=== PATIENT | male | born 1970 | race African-American/Black ===

== ENCOUNTER 2020-08-26 08:55 | Day surgery (SDC) | payer OTHER, SELFPAY ==
[2020-08-26 09:05] VITALS: BP 172/97; PULSE 80; RESP 18; TEMP 36.2; O2SAT 97; BMI 30.4
--- NOTE | 2020-08-26 09:14 | MHC.SHP ---
Pre-Procedural Eval Section B Chief Complaint: SCREENING Relevant Family History (Specify if Yes): No Present Medications: see Short Stay Collaborative assessment Medical History: Significant History (eczema) History of Previous Operations: No relevant previous surgery Allergies: Allergies Allergy/AdvReac Type Severity Reaction Status Date / Time avocado [AVOCADO] Allergy Severe THROAT Unverified 06/13/20 18:46 SWELLING pollen extracts [POLLEN] Allergy Mild RUNNY NOSE Unverified 06/13/20 18:46 Review of Systems Sugical H&P ROS: Negative: Constitution, Cardiovascular, Respiratory, Neurological, Psychiatric, Hem-Onc, Allergic/Immunologic, Gastrointestinal, Genitourinary, Musculoskeletal, Integumentary, Endocrine and Eyes/Ears/Nose/Throat Exam Surgical H&P Exam: Normal: HEENT, Normal: Heart, Normal: Lungs, Normal: Extremities, Normal: Abdomen, Normal: Skin and Normal: Neurological Plan Diagnosis/Plan: Unchanged Patient has been examined and remains a candidate for the planned procedure
--- NOTE | 2020-08-26 09:14 | PM.OP ---
Brief Operative Note Date of Service: 08/26/20 Pre-op diagnosis: colon screen Post-op diagnosis: same Procedure: see op note Surgeon: Carolina Baldwin MD Anesthesia: MAC Estimated blood loss (mL): 0 Condition: stable Disposition: PACU
--- NOTE | 2020-08-26 09:15 | W.PM.OPN ---
Operative Note Operative Note Date of Service: 08/26/20 Narrative: Operative Information Procedure Description: Colonoscopy COLONOSCOPY Instrument: Olympus variable stiffness pediatric scope 190L Colonoscopy Monitoring: Vital signs and clinical assessment, continuous EKG monitoring, Pulse oximetry, Carbon Dioxide monitoring and blood pressure monitoring were done throughout the procedure. Colon withdrawal time was 11 minutes. Procedure: The patient was placed in the left lateral decubitis position and pre-procedure medications were administered. After a digital rectal examination of the ano-rectum, the video colonoscope was inserted into the rectum and advanced through the colon to the cecum/TI. The colonoscope was slowly withdrawn in a retrograde panoramic fashion and the colon mucosa was carefully examined including a retroflexed view of the rectum. Findings and interventions are described below. Procedure Difficulty: easy Findings: Terminal Ileum-normal Cecum:normal Ascending Colon: 7-9 mm sessile polyp removed with cold snare Transverse Colon -normal Descending Colon:normal Sigmoid Colon: normal, 6-7 mm sessile polyp removed with forceps, Rectum: Retroflexion with moderate sized, slightly irritated internal hemorrhoids, grade I, one rectal fold in distal rectum seemed prominent on retroflexion and this was biopsied Anorectum - normal Colon preparation: Lyons Bowel Preparation Scale Right colon; 2 Transverse colon: 2 Left colon; 1 (0 = Unprepared colon segment with mucosa not seen due to solid stool that cannot be cleared. 1 = Portion of mucosa of the colon segment seen, but other areas of the colon segment not well seen due to staining, residual stool and/or opaque liquid. 2 = Minor amount of residual staining, small fragments of stool and/or opaque liquid, but mucosa of colon segment seen well. 3 = Entire mucosa of colon segment seen well with no residual staining, small fragments of stool or opaque liquid) Impression and Post Procedure Diagnosis: colon polyps internal hemorrhoids fair to poor prep Plan: High fiber diet leaflet Avoid straining at stool, epsom salts and sitz bath, anusol supps or cream Repeat Colonoscopy in 1-2 years or earlier if clinically indicated, compliance with instructions next time (ate sandwich yesterday) Above findings were reviewed with the patient and relevant handouts were provided if indicated.
--- NOTE | 2020-08-26 09:53 | PM.ANESPN ---
Subjective Subjective Date of Service: 08/26/20 Physical Exam Vital Signs: Vital Signs: Last Vital Signs Temp 97.1 F 08/26/20 09:05 Pulse 80 08/26/20 09:05 Resp 18 08/26/20 09:05 BP 172/97 H 08/26/20 09:05 Pulse Ox 97 08/26/20 09:05 Body Mass Index 30.4 Progress Note: A&P Time Spent With Patient Time: Total time spent is greater than 50% in coordination of care (as documented) at patient's floor/unit and/or counseling patient:
--- NOTE | 2020-08-26 09:53 | HO.ANESPROP2 ---
[facility] Past Medical History Medical History Eczema Hemochromatosis HTN (hypertension) IFG (impaired fasting glucose) Social History Social History Smoking Status: Never smoker Second Hand Smoke Exposure: No Use of substances other than those prescribed or required for medical reasons: No Advance Directives: No Advance Directives Information Provided: No Meds Allergies Allergy/AdvReac Type Severity Reaction Status Date / Time avocado [AVOCADO] Allergy Severe THROAT Unverified 06/13/20 18:46 SWELLING pollen extracts [POLLEN] Allergy Mild RUNNY NOSE Unverified 06/13/20 18:46 Exam Exam Date and Time: August 26, 2020 0953 Height,Weight and Vital Signs: Height 6 ft 4 in Weight 113.469 kg Last Vital Signs Temp 97.1 F 08/26/20 09:05 Pulse 80 08/26/20 09:05 Resp 18 08/26/20 09:05 BP 172/97 H 08/26/20 09:05 Pulse Ox 97 08/26/20 09:05 Airway Mallampati Class: III TM Dist: >3cm Neck ROM: Full
--- NOTE | 2020-08-26 09:55 | HO.ANESPROP2 ---
[facility] Past Medical History Medical History Eczema Hemochromatosis HTN (hypertension) IFG (impaired fasting glucose) Social History Social History Smoking Status: Never smoker Second Hand Smoke Exposure: No Use of substances other than those prescribed or required for medical reasons: No Advance Directives: No Advance Directives Information Provided: No Meds Allergies Allergy/AdvReac Type Severity Reaction Status Date / Time avocado [AVOCADO] Allergy Severe THROAT Unverified 06/13/20 18:46 SWELLING pollen extracts [POLLEN] Allergy Mild RUNNY NOSE Unverified 06/13/20 18:46 Exam Exam Date and Time: August 26, 2020 0955 Height,Weight and Vital Signs: Height 6 ft 4 in Weight 113.469 kg Last Vital Signs Temp 97.1 F 08/26/20 09:05 Pulse 80 08/26/20 09:05 Resp 18 08/26/20 09:05 BP 172/97 H 08/26/20 09:05 Pulse Ox 97 08/26/20 09:05
[2020-08-26 10:03] VITALS: BP 132/77; PULSE 73; RESP 16; TEMP 36.3; O2SAT 97
[2020-08-26 10:18] VITALS: BP 149/95; PULSE 67; RESP 14; TEMP 36.3; O2SAT 97
== END 2020-08-26 23:59 | disposition home or self-care (01) ==
PROVIDERS: PCP Internal Medicine Gastroenterology; Visit Provider Internal Medicine Gastroenterology
PROC: 0DJD8ZZ Inspection of Lower Intestinal Tract, Via Natural or Artificial Opening Endoscopic (ICD-10-PCS; CPT 45378; principal; 2020-08-26 10:30)
DX: Z12.11 Encounter for screening for malignant neoplasm of colon (principal); D12.5 Benign neoplasm of sigmoid colon; K62.1 Rectal polyp; K64.0 First degree hemorrhoids
CPT/HCPCS: 45385; 45380; 88305

== ENCOUNTER 2020-09-03 12:45 | Outpatient (REF) | payer OTHER, SELFPAY ==
--- NOTE | 2020-09-03 13:15 | XR_ITS ---
EXAMINATION: XR KNEE, LEFT CLINICAL INFORMATION: Pain COMPARISON: None TECHNIQUE: Four views of the left knee. FINDINGS: Bone alignment is normal. No fracture or dislocation is seen. There are small osteophytes at the patellofemoral joint. The femoral tibial joints are normal. There are large osteophytes at the quadriceps tendon insertion to the patella and the patellar tendon origin and insertion. There is no significant joint effusion. XR/XR knee LT 4V IMPRESSION: Small osteophytes at the patellofemoral joint. Large osteophytes at the quadriceps tendon insertion and patellar tendon insertion and origin.
[2020-09-03 13:27] LABS: MANUAL DIFF FLAG NO
[2020-09-03 13:31] LABS: Basophils Percent Auto 0.2 % (0-2); Eosinophils Absolute Auto 0.1 X10*3/uL (0.0-0.4); Eosinophils Percent Auto 1.6 % (0-4); Hemoglobin 14.1 g/dl (14.0-18.0); Imm Gran Abs Auto 0.02 X10*3/uL (0.00-0.03); Imm Gran Pct Auto 0.4 % (0.0-0.4); Lymphocytes Absolute Auto 0.8 X10*3/uL (1.2-4.9); Lymphocytes Percent Auto 18.8 % (20-40); Mean Corpuscular HGB Conc 33.6 g/dl (31.0-36.0); Mean Corpuscular Hemoglobin 30.5 pg (27.0-33.0); Mean Corpuscular Volume 90.7 fL (80-98); Mean Platelet Volume 11.1 fL (9.4-12.4); Monocytes Absolute Auto 0.7 X10*3/uL (0.1-1.2); Monocytes Percent Auto 14.8 % (2-11); Neutrophils Absolute Auto 2.9 X10*3/uL (2.0-8.3); Neutrophils Percent Auto 64.2 % (45-73); Platelet Count 202 X10*3/uL (160-400); Red Blood Count 4.63 X10*6/uL (4.60-5.80); Red Cell Distribution Width 12.9 % (11.0-16.0); White Blood Count 4.5 X10*3/uL (4.8-10.8)
[2020-09-03 14:08] LABS: Alanine Aminotransferase 178 U/L (0-40); Albumin Level 4.7 g/dL (3.5-5.0); Alkaline Phosphatase 70 U/L (39-117); Anion Gap 12 (12-20); Aspartate Amino Transferase 84 U/L (5-37); Bilirubin Direct 0.3 mg/dL (0.0-0.5); Bilirubin Total 0.7 mg/dL (0.0-1.0); Blood Urea Nitrogen 12 mg/dL (9-16); Calcium 9.1 mg/dL (8.4-10.2); Carbon Dioxide 29 mmol/L (22-29); Chloride 101 mmol/L (96-108); Estimated Glomerular Filt Rate > 60; Glucose Random 137 mg/dL (60-115); Potassium 4.6 mmol/l (3.3-5.1); Rheumatoid Factor < 15.0 IU/mL (<15.0); Sodium 137 mmol/L (135-145); Total Protein 8.2 g/dL (6.5-8.0)
[2020-09-03 14:24] LABS: Erythrocyte Sedimentation Rate 23 MM/HR (0-15)
[2020-09-03 14:26] LABS: TSH reflex Free T4 1.78 mIU/mL (0.32-4.0)
[2020-09-05 01:57] LABS: Lyme Abs Screen <0.90 index
[2020-09-06 00:12] LABS: Anti Nuclear Antibody Pattern Nuclear, Speckled; Anti Nuclear Antibody Screen POSITIVE (NEGATIVE); Anti Nuclear Antibody Titer 1:40 titer
== END 2020-09-03 12:46 | disposition home or self-care (01) ==
LOC: HO.LAB 12:45
PROVIDERS: Absent Provider Internal Medicine; PCP Internal Medicine; Visit Provider General Practice
DX: Z00.00 Encounter for general adult medical examination without abnormal findings (principal); M25.562 Pain in left knee
CPT/HCPCS: 36415; 73564; 80053; 80076; 82248; 84443; 85025; 85652; 86038; 86039; 86431; 86618

== ENCOUNTER → 2020-09-04 09:54 | Outpatient (BNVA) | payer OTHER, SELFPAY | PROVIDERS: PCP Internal Medicine; Referring Provider Internal Medicine; Visit Provider Nurse Practitioner | DX: Z76.89 Persons encountering health services in other specified circumstances (principal) ==

== ENCOUNTER 2021-05-01 15:42 | Emergency (ER) | payer OTHER, SELFPAY ==
[2021-05-01 15:49] VITALS: BP 148/91; PULSE 83; RESP 18; TEMP 36.9; O2SAT 96; BMI 26.9
[2021-05-01 16:11] LABS: Glucose, Whole Blood > 600 mg/dL (60-115)
[2021-05-01 16:11] LABS: Glucose, Whole Blood > 600 mg/dL (60-115)
[2021-05-01 17:43] LABS: MANUAL DIFF FLAG NO
[2021-05-01 18:13] LABS: Alanine Aminotransferase 35 U/L (0-40); Albumin Level 4.3 g/dL (3.5-5.0); Alkaline Phosphatase 102 U/L (39-117); Anion Gap 14 (12-20); Aspartate Amino Transferase 29 U/L (5-37); Bilirubin Total 0.8 mg/dL (0.0-1.0); Blood Urea Nitrogen 12 mg/dL (9-16); Calcium 9.2 mg/dL (8.4-10.2); Carbon Dioxide 21 mmol/L (22-29); Chloride 96 mmol/L (96-108); Creatinine Clr Calc Pharmacy 65.8; Estimated Glomerular Filt Rate 47; Glucose Random 689 mg/dL (60-115); Potassium 4.2 mmol/L (3.3-5.1); Sodium 127 mmol/L (135-145); Total Protein 9.3 g/dL (6.5-8.0)
--- NOTE | 2021-05-01 18:28 | ED_ITS ---
HPI - General Adult General Chief complaint: General Medical Stated complaint: abnormal labs Time Seen by Provider: 05/01/21 18:15 Source: patient Mode of arrival: ambulatory Limitations: no limitations History of Present Illness HPI narrative: This is a very pleasant 51 years old male that was sent here because the elevated blood sugar he give a blood the for hemochromatosis he was called back because his blood sugar was more than 600. Patient denies any vomiting any dizziness he states that he is feels fine Onset (ago): day(s) (1) Severity: moderate Relieving factors: none Exacerbating factors: none Associated symptoms: denies other symptoms Related Data Previous Rx's Medication Instructions Recorded metformin 500 mg tablet 500 mg PO BID #60 tab 05/01/21 Allergies Allergy/AdvReac Type Severity Reaction Status Date / Time avocado [AVOCADO] Allergy Severe THROAT Verified 09/04/20 09:56 SWELLING pollen extracts [POLLEN] Allergy Mild RUNNY NOSE Verified 09/04/20 09:56 Review of Systems Review of Systems: Yes all other systems are reviewed and are negative Constitutional: Constitutional: Reports as per HPI and Reports no additional constitutional complaints ENT: Reports system reviewed and no additional complaints, except as documented Cardiovascular: Cardiovascular: Reports no additional cardiovascular complaints Gastrointestinal: Gastrointestinal: Denies diarrhea and Denies vomiting Musculoskeletal: Musculoskeletal: Reports no additional musculoskeletal complaints Neurologic: Reports system reviewed and no additional complaints, except as documented Endocrine: Endocrine: Reports no additional endocrine complaints [facility] Past Medical History Medical History (Updated 05/01/21 @ 21:11 by Jesse Nguyễn MD) Eczema Hemochromatosis HTN (hypertension) IFG (impaired fasting glucose) Surgical History Hx of colonoscopy Family History Family History Mother Diabetes Social History Social History Alcohol intake: current Alcohol intake frequency: a few times a month Patient Tobacco Use Status: Never used Tobacco Second Hand Smoke Exposure: No Use of substances other than those prescribed or required for medical reasons: No Advance Directives: No Advance Directives Information Provided: Yes Physical Exam Vital Signs: Vital Signs: Last Vital Signs Temp 98.5 F 08/05/21 15:49 Pulse 71 05/01/21 18:50 Resp 16 05/01/21 18:50 BP 133/80 05/01/21 18:50 Pulse Ox 97 05/01/21 18:50 Body Mass Index 26.9 Const: General: cooperative, healthy appearing, comfortable, no acute distress, well developed, alert and awake HENMT: Other: Examination the head eyes nose mouth and throat are within normal limit Neck: Other: Neck is supple, full range of motion Chest: Chest palpation & inspection: normal inspection of the chest Resp: Other: Lungs are clear during auscultation Cardio: Other: Regular rate rhythm a Jugular venous distension: no JVD Heart sounds: S1 normal heart sound present and S2 normal heart sound present GI: Other: Abdomen is soft nontender no guarding no rebound Auscultation: normal bowel sounds Course Reevaluation(s) Reevaluation #1: Blood sugar is now in the 300 range, anion gap is normal, patient refuses admission to the hospital. I did speak with is primary care physician coverage at [facility] [address] [place], they will call the patient tomorrow arrange diabetic education, arrange a glucometer. We will start the patient on Glucophage 500 mg twice a day. Medical Decision Making Lab Data Result diagrams: 05/01/21 17:26 05/01/21 17:26 Labs: Lab Results 05/01/21 05/01/21 05/01/21 Range/Units 15:57 16:07 17:26 WBC 3.1 L (4.8-10.8) X10*3/uL RBC 4.26 L (4.60-5.80) X10*6/uL Hgb 13.2 L (14.0-18.0) g/dl Hct 35.6 L (42-52) % MCV 83.6 (80-98) fL MCH 31.0 (27.0-33.0) pg MCHC 37.1 H (31.0-36.0) g/dl RDW 14.2 (11.0-16.0) % Plt Count TNP MPV 12.4 (9.4-12.4) fL Immature Gran % (Auto) 0.3 (0.0-0.4) % Neut % (Auto) 53.9 (45-73) % Lymph % (Auto) 31.8 (20-40) % Vigo % (Auto) 9.2 (2-11) % Eos % (Auto) 3.5 (0-4) % Baso % (Auto) 1.3 (0-2) % Lymph # (Auto) 1.0 L (1.2-4.9) X10*3/uL Vigo # (Auto) 0.3 (0.1-1.2) X10*3/uL Eos # (Auto) 0.1 (0.0-0.4) X10*3/uL Baso # (Auto) 0.0 (0.0-0.2) X10*3/uL Abs Immat Gran (auto) 0.01 (0.00-0.03) X10*3/uL Absolute Neuts (auto) 1.7 L (2.0-8.3) X10*3/uL Absolute Nucleated RBC 0.000 (0.0-0.012) X10*3/uL Nucleated RBC % (auto) 0.0 (0.0-0.2) /100WBC Sodium (135-145) mmol/L Potassium (3.3-5.1) mmol/L Chloride (96-108) mmol/L Carbon Dioxide (22-29) mmol/L Anion Gap (12-20) BUN (9-16) mg/dL Creatinine (0.5-1.4) mg/dL Estim Creat Clear Calc Estimated GFR POC Glucose > 600 H* > 600 H* (60-115) mg/dL Random Glucose (60-115) mg/dL Calcium (8.4-10.2) mg/dL Total Bilirubin (0.0-1.0) mg/dL AST (5-37) U/L ALT (0-40) U/L Alkaline Phosphatase (39-117) U/L Total Protein (6.5-8.0) g/dL Albumin (3.5-5.0) g/dL 05/01/21 05/01/21 Range/Units 17:26 20:14 WBC (4.8-10.8) X10*3/uL RBC (4.60-5.80) X10*6/uL Hgb (14.0-18.0) g/dl Hct (42-52) % MCV (80-98) fL MCH (27.0-33.0) pg MCHC (31.0-36.0) g/dl RDW (11.0-16.0) % Plt Count MPV (9.4-12.4) fL Immature Gran % (Auto) (0.0-0.4) % Neut % (Auto) (45-73) % Lymph % (Auto) (20-40) % Vigo % (Auto) (2-11) % Eos % (Auto) (0-4) % Baso % (Auto) (0-2) % Lymph # (Auto) (1.2-4.9) X10*3/uL Vigo # (Auto) (0.1-1.2) X10*3/uL Eos # (Auto) (0.0-0.4) X10*3/uL Baso # (Auto) (0.0-0.2) X10*3/uL Abs Immat Gran (auto) (0.00-0.03) X10*3/uL Absolute Neuts (auto) (2.0-8.3) X10*3/uL Absolute Nucleated RBC (0.0-0.012) X10*3/uL Nucleated RBC % (auto) (0.0-0.2) /100WBC Sodium 127 L (135-145) mmol/L Potassium 4.2 (3.3-5.1) mmol/L Chloride 96 (96-108) mmol/L Carbon Dioxide 21 L (22-29) mmol/L Anion Gap 14 (12-20) BUN 12 (9-16) mg/dL Creatinine 1.55 H (0.5-1.4) mg/dL Estim Creat Clear Calc 65.8 Estimated GFR 47 POC Glucose 348 H (60-115) mg/dL Random Glucose 689 H* (60-115) mg/dL Calcium 9.2 (8.4-10.2) mg/dL Total Bilirubin 0.8 (0.0-1.0) mg/dL AST 29 (5-37) U/L ALT 35 (0-40) U/L Alkaline Phosphatase 102 (39-117) U/L Total Protein 9.3 H D (6.5-8.0) g/dL Albumin 4.3 (3.5-5.0) g/dL Discharge Plan Discharge Clinical Impression: Hyperglycemia due to diabetes mellitus Patient Disposition: Home, Self-Care Instructions: Diabetic Hyperglycemia (ED) Additional Instructions: Please follow-up with your primary care physician you refused admission, you will need a glucometer you will need the strips. We are going to start you on Glucophage Prescriptions: New metformin 500 mg tablet 500 mg PO BID Qty: 60 RF: 0 Referrals: Marcella Cameron MD [Primary Care Provider] - 2 days
[2021-05-01] MEDS: 0.9 % Sodium Chloride 1,000 ML 999 ML IVCONT ×3 (18:46)
[2021-05-01 18:50] VITALS: BP 133/80; PULSE 71; RESP 16; O2SAT 97
[2021-05-01 19:38] LABS: Hematocrit 35.6 % (42-52); Hemoglobin 13.2 g/dl (14.0-18.0); Mean Corpuscular HGB Conc 37.1 g/dl (31.0-36.0); Mean Corpuscular Volume 83.6 fL (80-98); Mean Platelet Volume 12.4 fL (9.4-12.4); PLT CLUMP 1; Red Blood Count 4.26 X10*6/uL (4.60-5.80); Red Cell Distribution Width 14.2 % (11.0-16.0); SCAN SMEAR FLAG 1
[2021-05-01 19:48] LABS: White Blood Count 3.1 X10*3/uL (4.8-10.8)
[2021-05-01 19:55] LABS: Basophils Percent Auto 1.3 % (0-2); Eosinophils Absolute Auto 0.1 X10*3/uL (0.0-0.4); Eosinophils Percent Auto 3.5 % (0-4); Imm Gran Abs Auto 0.01 X10*3/uL (0.00-0.03); Imm Gran Pct Auto 0.3 % (0.0-0.4); Lymphocytes Percent Auto 31.8 % (20-40); Monocytes Absolute Auto 0.3 X10*3/uL (0.1-1.2); Monocytes Percent Auto 9.2 % (2-11); Neutrophils Absolute Auto 1.7 X10*3/uL (2.0-8.3); Neutrophils Percent Auto 53.9 % (45-73)
[2021-05-01 20:18] LABS: Glucose, Whole Blood 348 mg/dL (60-115)
[2021-05-01] MEDS: metFORMIN HCl 500 MG TABLET PO (21:20)
[2021-05-01 21:30] LABS: Glucose, Whole Blood 310 mg/dL (60-115)
== END 2021-05-01 21:29 | disposition home or self-care (01) ==
PROVIDERS: Emergency Provider Emergency Medicine; PCP Internal Medicine
DX: R79.89 Other specified abnormal findings of blood chemistry (principal); E11.65 Type 2 diabetes mellitus with hyperglycemia; Z79.84 Long term (current) use of oral hypoglycemic drugs; Z79.899 Other long term (current) drug therapy
CPT/HCPCS: 36415; 80053; 82947; 85025; 99284

== ENCOUNTER 2023-06-07 11:03 | Outpatient (REF) | payer OTHER, SELFPAY ==
[2023-06-07 13:47] LABS: Cholesterol 200 mg/dL (<200); HDL Cholesterol 32 mg/dL (>40); Triglycerides 1090 mg/dL (<150)
[2023-06-07 13:54] LABS: Creatinine Urine 53.45 mg/dL; Microalbum/Creatinine Ratio Ur 119.7 ug/mg cr (<30)
[2023-06-07 13:54] LABS: TSH reflex Free T4 1.12 uIU/mL (0.32-4.0); Vitamin D 25-OH Total 17.2 ng/mL (>30)
[2023-06-07 13:57] LABS: Alanine Aminotransferase 21 U/L (0-40); Albumin Level 4.6 g/dL (3.5-5.0); Alkaline Phosphatase 77 U/L (39-117); Anion Gap 18 (12-20); Aspartate Amino Transferase 22 U/L (5-37); Bilirubin Total 0.9 mg/dL (0.0-1.0); Blood Urea Nitrogen 14 mg/dL (9-16); Calcium 9.5 mg/dL (8.4-10.2); Carbon Dioxide 21 mmol/L (22-29); Chloride 98 mmol/L (96-108); Estimated Glomerular Filt Rate > 60; Glucose Random 298 mg/dL (60-115); Potassium 4.3 mmol/L (3.3-5.1); Sodium 133 mmol/L (135-145); Total Protein 8.9 g/dL (6.5-8.0)
[2023-06-07 14:33] LABS: Reflex LDLD? Yes
[2023-06-09 04:49] LABS: LDL Cholesterol Direct 60 mg/dL (<100)
== END 2023-06-07 11:04 | disposition home or self-care (01) ==
LOC: HO.HHCL 11:03
PROVIDERS: Visit Provider Internal Medicine
DX: E11.65 Type 2 diabetes mellitus with hyperglycemia (principal); Z79.4 Long term (current) use of insulin
CPT/HCPCS: 36415; 80053; 80061; 82043; 82306; 82570; 83721; 84443

== ENCOUNTER 2024-04-05 08:23 | Outpatient (REF) | payer OTHER, SELFPAY ==
[2024-04-05 11:31] LABS: Alanine Aminotransferase 28 U/L (0-40); Albumin Level 4.5 g/dL (3.5-5.0); Alkaline Phosphatase 61 U/L (39-117); Anion Gap 11 (12-20); Aspartate Amino Transferase 27 U/L (5-37); Bilirubin Direct 0.2 mg/dL (0.0-0.5); Bilirubin Total 0.6 mg/dL (0.0-1.0); Blood Urea Nitrogen 15 mg/dL (9-16); Calcium 9.8 mg/dL (8.4-10.2); Carbon Dioxide 27 mmol/L (22-29); Chloride 102 mmol/L (96-108); Cholesterol 160 mg/dL (<200); Estimated Glomerular Filt Rate > 60; Glucose Random 224 mg/dL (60-115); HDL Cholesterol 32 mg/dL (>40); LDL Cholesterol Calculated 68 mg/dL (<100); Potassium 4.3 mmol/L (3.3-5.1); Sodium 136 mmol/L (135-145); Total Protein 7.8 g/dL (6.5-8.0); Triglycerides 303 mg/dL (<150)
[2024-04-05 11:51] LABS: Creatinine Urine 43.53 mg/dL
== END 2024-04-05 08:24 | disposition home or self-care (01) ==
LOC: HO.HHCL 08:23
PROVIDERS: Visit Provider Internal Medicine
DX: E11.65 Type 2 diabetes mellitus with hyperglycemia (principal); Z79.4 Long term (current) use of insulin
CPT/HCPCS: 36415; 80048; 80061; 80076; 82043; 82570

== ENCOUNTER 2024-12-15 10:44 | Outpatient (REF) | payer MEDICAID, SELFPAY ==
[2024-12-15 13:50] LABS: Anion Gap 14 (12-20); Blood Urea Nitrogen 16 mg/dL (9-16); Calcium 9.7 mg/dL (8.4-10.2); Carbon Dioxide 25 mmol/L (22-29); Chloride 99 mmol/L (96-108); Estimated Glomerular Filt Rate > 60; Glucose Random 283 mg/dL (60-115); Potassium 4.4 mmol/L (3.3-5.1); Sodium 134 mmol/L (135-145)
== END 2024-12-15 10:45 | disposition home or self-care (01) ==
LOC: HO.HHCL 10:44
PROVIDERS: Visit Provider Internal Medicine
DX: E11.69 Type 2 diabetes mellitus with other specified complication (principal)
CPT/HCPCS: 36415; 80048

== ENCOUNTER 2025-05-29 08:51 | Outpatient (REF) | payer MEDICAID, SELFPAY ==
--- OUTSIDE RECORDS SUMMARY | 2025-05-29 09:38 | XMS_ITS | Encounter Summary ---
Author Organization [employer] Address [address] [facility] [address] [place] [address] Care Team Providers Care Paper Latcher Name Role Phone Marcella Cameron MD Primary Care Provide r Vaishali Nuñez PharmD Unavailable Reason for Visit * Reason Onset Date Comments Med Refill 09/07/2024 Encounter Details Date Type Department Care Team (Late st Contact Info) Description 09/07/2024 Refill [facility]INE [address] [place], [place] [phone] Marcella Cameron MD [address] [place], [place] [phone] Eczema, unspecified type Social History Tobacco Use Types Packs/Day Years Used Date Smoking Tobacco: Never Passive Smoke Exposure: Never Smokeless Tobacco: Never Alcohol Use Standard Drinks/Week Comments Yes 3 (1 standard drink = 0.6 oz pur e alcohol) everday Alcohol Answer Date Recorded Frequency of Alcohol Consumption Not on file 07/14/2024 Average Number of Drinks Not on file 024 Frequency of Binge Drinking Not on file 06/27 Score 0 07/14/2024 Depression Answer Date Recorded Patient Health Questionnaire-9 Score 0 07/14/2024 Patient Health Questionnaire-9 Score 0 07/14/2024 Last PHQ-9: Questionnaire Data Not on file 1 Housing Stability Answer Date Recorded What is your housing situation today? I have audra fletcher 07/16/[address] you li ve. Do you have problems with any of the following? None of the above 07/16/2023 Food Insecurity Answer Date Recorded Within the past 12 months, y ou worried that your food would run out before you got money to buy more: Never True 07/16/2023 Within the past 12 months,th e food you bought just didn't last and you didn't have enough money to get more: Never True Transportation Answer Date Recorded In the past 12 months, has l ack of transportation kept you from medical appts, meetings, work or from getting things needed for daily living? No 07/16/2023 Utilities Answer Date Recorded In the past 12 months, has t he electric, gas, oil or water company threatened to shut off services in your home? No 07/16/2023 Depression Answer Date Recorded Patient Health Questionnaire-2 Score 0 07/14/2024 Sex and Gender Information Value Date Recorded Sex Assigned at Male 07/27/2022 10:36 AM EDT Legal Sex Male 10:36 AM EDT Gender Identity Male 07/27/2022 10:36 AM EDT Sexual Orientation Straight 07/27/2022 10 :36 AM EDT documented as of this encounter Plan of Treatment Upcoming Encounters Date Type Department Care Team (Late st Contact Info) Description 06/05/2025 10:00 AM EDT Medication Management [facility] MED[facility]INE [address] [place] [phone] Vaishali Nuñez PharmD [address] [place] [phone] 07/31/2025 9:15 AM EST Office Visit [facility] [address] [place] [phone] Marcella Cameron MD [address] [place] [phone] documented as of this encounter Goals Goal Patient Goal Type Associated Problems Recent Progress Patient-Stated? Author Blood Pressure < 140/90 Blood Pressure 126/88(2024 9:15 AM EDT) No Vaishali Love PharmD Hemoglobin A1c < 7 Result Component 7(04/11/2025 10:56 AM EDT) No Vaishali Love PharmD documented as of this encounter Visit Diagnoses Diagnosis Eczema, unspecified type documented in this encounter Additional Health Concerns Assessment Noted Time PHQ-9 Depression Total Score: 0 07/14/20 24 2:54 PM EDT documented as of this encounter Care Teams Paper Latcher Relationship Specialty Start Date End Date Marcella Cameron MD [address] [place] [phone] PCP - General Family Medicine 07/19/19 Vaishali Nuñez, PharmD [address] [place] [phone] Pharmacist Internal Medicine 04/02/24 documented as of this encounter
--- OUTSIDE RECORDS SUMMARY | 2025-05-29 09:38 | XMS_ITS | Encounter Summary ---
Author Organization [employer] Address [address] [facility] [address] [place] [address] Care Team Providers Care Producer Assistant Name Role Phone Marcella Cameron MD Primary Care Provide r Vaishali Nuñez PharmD Unavailable Reason for Visit * Reason Onset Date Comments Med Refill 11/08/2023 Encounter Details Date Type Department Care Team (Late st Contact Info) Description 11/08/2023 Refill [facility] MEDICINE [address] [place], [place] [phone] Tonja Bee MD [address] [place], [place] [phone] Primary hypertension Social History Tobacco Use Types Packs/Day Years Used Date Smoking Tobacco: Never Smokeless Tobacco: Never Alcohol Use Standard Drinks/Week Comments Yes 3 (1 standard drink = 0.6 oz pur e alcohol) everday PHQ-2 Answer Date Recorded Patient Health Questionnaire-2 Score 0 06/04/2023 Housing Stability Answer Date Recorded What is your housing situation today? I have audrajackie fletcher 07/16/[address] you [...] Date Recorded Patient Health Questionnaire-2 Score 0 06/04/2023 Sex and Gender Information Value Date Recorded Sex Assigned at Male 07/27/2022 10:36 AM EDT Legal Sex Male 10:36 AM EDT Gender Identity Male 07/27/2022 10:36 AM EDT Sexual Orientation Straight 07/27/2022 10 :36 AM EDT documented as of this encounter Plan of Treatment Upcoming Encounters Date Type Department Care Team (Late st Contact Info) Description 06/05/2025 10:00 AM EDT Medication Management [facility] MEDICINE [address] [place] [phone] Vaishali Nuñez PharmD [address] [place] [phone] 07/31/2025 9:15 AM EST Office Visit [facility] MED[facility]INE [address] [place] [phone] Marcella Cameron MD [address] [place] [phone] documented as of this encounter Visit Diagnoses Diagnosis Primary hypertension Unspecified essential hypertension documented in this encounter Care Teams Producer Assistant Relationship Specialty Start Date End Date Marcella Cameron MD [address] [place] [phone] PCP - General Family Medicine 07/19/19 Vaishali Nuñez PharmD [address] [place] [phone] Pharmacist Internal Medicine 04/02/24 documented as of this encounter
--- OUTSIDE RECORDS SUMMARY | 2025-05-29 09:38 | XMS_ITS | Encounter Summary ---
Author Organization [employer] Address [address] [facility] [address] [place] [address] Care Team Providers Care Housing Assistant Name Role Phone Marcella Cameron MD Primary Care Provide r Vaishali Nuñez PharmD Unavailable [phone] Encounter Details Date Type Department Care Team (Late st Contact Info) Description 07/07/2023 Abstract [facility] MEDICINE [address] [place], [place] [phone] Marcella Cameron MD [address] [place], [place] [phone] Social History Tobacco Use Types Packs/Day Years Used Date Smoking Tobacco: Never Smokeless Tobacco: Never Alcohol Use Standard Drinks/Week Comments Yes 3 (1 standard drink = 0.6 oz pur e alcohol) everday PHQ-2 Answer Date Recorded Patient Health Questionnaire-2 Score 0 06/04/2023 Housing Stability Answer Date Recorded What is your housing situation today? I have audra fletcher 07/05/[address] you li ve. Do you have problems with any of the following? None of the above 07/05/2023 Food Insecurity Answer Date Recorded Within the past 12 months, y ou worried that your food would run out before you got money to buy more: Never True 07/05/2023 Within the past 12 months,th e food you bought just didn't last and you didn't have enough money to get more: Never True 05/2023 Transportation Answer Date Recorded In the past 12 months, has l ack of transportation kept you from medical appts, meetings, work or from getting things needed for daily living? No 07/05/2023 Utilities Answer Date Recorded In the past 12 months, has t he electric, gas, oil or water company threatened to shut off services in your home? No 07/05/2023 Depression Answer Date Recorded Patient Health Questionnaire-2 [...] Description 06/05/2025 10:00 AM EDT Medication Management [facility] MEDICINE [address] [place] [phone] Vaishali Nuñez PharmD [address] [place] [phone] 07/31/2025 9:15 AM EST Office Visit [facility] MEDICINE [address] [place] [phone] Marcella Cameron MD [address] [place] [phone] documented as of this encounter Visit Diagnoses Not on filedocumented in this encounter Care Teams Housing Assistant Relationship Specialty Start Date End Date Marcella Cameron MD [address] [place] [phone] PCP - General Family Medicine 07/19/19 Vaishali Nuñez PharmD [address] [place] [phone] Pharmacist Internal Medicine 04/02/24 documented as of this encounter
--- OUTSIDE RECORDS SUMMARY | 2025-05-29 09:38 | XMS_ITS | Encounter Summary ---
Author Organization [employer] Address [address] [facility] 7[address] [place] [address] Care Team Providers Care Customer Support Consultant Name Role Phone Marcella Cameron MD Primary Care Provide r Vaishali Nuñez PharmD Unavailable Reason for Visit * Reason Onset Date Comments Med Refill 11/08/2023 Encounter Details Date Type Department Care Team (Late st Contact Info) Description 11/08/2023 Refill [facility] [address] [place], [place] [phone] Silvana Centeno DO [address] [place], [place] [phone] Type 2 diabetes mellitus with hyperglycemia, with long-term current use of insulin ([facility]) Social History Tobacco Use Types Packs/Day Years [...] 10:00 AM EDT Medication Management [facility] [address] [place] [phone] Vaishali Nuñez PharmD [address] [place] [phone] 07/31/2025 9:15 AM EST Office Visit [facility] [address] [place] [phone] Marcella Cameron MD [address] [place] [phone] documented as of this encounter Visit Diagnoses Diagnosis Type 2 diabetes mellitus with hyperglycemia, with long-term current use of insulin ([facility]) documented in this encounter Care Teams Customer Support Consultant Relationship Specialty Start Date End Date Marcella Cameron MD [address] [place] [phone] PCP - General Family Medicine 07/19/19 Vaishali Nuñez, EscobarD [address] [place] [phone] Pharmacist Internal Medicine 04/02/24 documented as of this encounter
--- OUTSIDE RECORDS SUMMARY | 2025-05-29 09:38 | XMS_ITS | Encounter Summary ---
Author Organization [email or web address] Address 75 [facility] 7 [place] [address] Care Team Providers Care Emc Storage Architect Name Role Phone Marcella Cameron MD Primary Care Provide r Vaishali Nuñez PharmD Unavailable Reason for Visit * Reason Onset Date Comments Med Refill 02/20/2024 Encounter Details Date Type Department Care Team (Late st Contact Info) Description 02/20/2024 Refill [facility] 230 [place], [place] [phone] Marcella Cameron MD 230 [place], [place] [phone] Hypertriglyceridemia, essential; Type 2 diabetes mellitus with other specified complication, unspecified whether petroleum terminal plant operator insulin use ([facility]/HCC); Type 2 diabetes mellitus with hyperglycemia, with long-term current use of insulin ([facility]); Eczema, unspecified type Social History Tobacco Use [...] the past 12 months, has t he [employer], gas, oil or water [email or web address] threatened to shut off services in your [...] Description 06/05/2025 10:00 AM EDT Medication Management [facility] [address] [place] [address] Vaishali Nuñez, PharmD [address] [place] [address] [phone] 07/31/2025 9:15 AM EST Office Visit [facility] [address] [place] [address] Marcella Cameron MD [address] [place] [address] 0[address] documented as of this encounter Visit Diagnoses Diagnosis Hypertriglyceridemia, essential Pure hyperglyceridemia Type 2 diabetes mellitus with other specified complication, unspecified whether retirement insulin use ([facility]) Type 2 diabetes mellitus with hyperglycemia, with long-term current use of insulin ([facility]) Eczema, unspecified type documented in this encounter Care Teams Emc Storage Architect Relationship Specialty Start Date End Date Marcella Cameron MD [address] [place] [phone] PCP - General Family Medicine 07/19/19 Vaishali Nuñez, EscobarD [address] [place] [address] [place] [address] Pharmacist Internal Medicine 04/02/24 documented as of this encounter
--- OUTSIDE RECORDS SUMMARY | 2025-05-29 09:38 | XMS_ITS | Encounter Summary ---
Author Organization [employer] Address 75 [facility] 7 [place] [address] Care Team Providers Care Instructional Designer Name Role Phone Marcella Cameron MD Primary Care Provide r Vaishali Nuñez PharmD Unavailable Reason for Visit * Reason Onset Date Comments Med Refill 11/08/2023 Encounter Details Date Type Department Care Team (Late st Contact Info) Description 11/08/2023 Refill [facility] 230 [place], [place] [phone] Marcella Cameron MD 230 [place], [place] [phone] Eczema, unspecified type; Type 2 diabetes mellitus with other specified complication, unspecified whether long line teamster insulin use ([facility]) Social History Tobacco Use Types Packs/Day Years [...] Description 06/05/2025 10:00 AM EDT Medication Management [facility] [address] [place] [phone] Vaishali Nuñez PharmD [address] [place] [address] 07/31/2025 9:15 AM EST Office Visit [facility] [address] [place] [address] Marcella Cameron MD [address] [place] [address] 8[address] documented as of this encounter Visit Diagnoses Diagnosis Eczema, unspecified type Type 2 diabetes mellitus with other specified complication, unspecified whether long line teamster insulin use ([facility]) documented in this encounter Care Teams Instructional Designer Relationship Specialty Start Date End Date Marcella Cameron MD [address] [place] [address] 524[address] PCP - General Family Medicine 07/19/19 Vaishali Nuñez PharmD [address] [place] [address] 34446 Pharmacist Internal Medicine 04/02/24 documented as of this encounter
--- OUTSIDE RECORDS SUMMARY | 2025-05-29 09:38 | XMS_ITS | Encounter Summary ---
Author Organization [employer] Address 75 [facility] 7 [place] [address] Care Team Providers Care Hull Outfit Supervisor Name Role Phone Marcella Cameron MD Primary Care Provide r Vaishali Nuñez PharmD Unavailable Reason for Visit * Reason Onset Date Comments Med Refill 12/22/2023 Encounter Details Date Type Department Care Team (Late st Contact Info) Description 12/22/2023 Refill [facility] 230 [place], [place] [phone] Marcella Cameorn MD 230 [place], [place] [phone] Hypertriglyceridemia, essential; Type 2 diabetes mellitus with other specified complication, unspecified whether longshore equipment operator insulin use (CMS/HCC); Eczema, unspecified type; Type 2 diabetes mellitus with hyperglycemia, with long-term current use of insulin ([facility]) Social History Tobacco Use Types Packs/Day Years [...] the past 12 months, has t he [employer], gas, oil or water [employer] threatened to shut off services in your [...] Description 06/05/2025 10:00 AM EDT Medication Management [facility] [address] [place] [address] Vaishali Nuñez, PharmD [address] [place] [address] 07/31/2025 9:15 AM EST Office Visit [facility] [address] [place] [address] Marcella Cameron MD [address] [place] [address] 31268 documented as of this encounter Visit Diagnoses Diagnosis Hypertriglyceridemia, essential Pure hyperglyceridemia Type 2 diabetes mellitus with other specified complication, unspecified whether senior care insulin use (CMS/HCC) Eczema, unspecified type Type 2 diabetes mellitus with hyperglycemia, with long-term current use of insulin ([facility]) documented in this encounter Care Teams Hull Outfit Supervisor Relationship Specialty Start Date End Date Marcella Cameron MD [address] [place] [address] PCP - General Family Medicine 07/19/19 Vaishali Nuñez, EscobarD [address] [place] [address] [place] [address] Pharmacist Internal Medicine 04/02/24 documented as of this encounter
--- OUTSIDE RECORDS SUMMARY | 2025-05-29 09:38 | XMS_ITS | Encounter Summary ---
Author Organization [employer] Address 75 [facility] 7 [place] [address] Care Team Providers Care Biochemistry Specialist Name Role Phone Marcella Cameron MD Primary Care Provide r Vaishali Nuñez PharmD Unavailable Reason for Visit * Reason Onset Date Comments Paperwork/Forms 05/07/2023 Encounter Details Date Type Department Care Team (Late st Contact Info) Description 05/07/2023 Telephone [facility] 230 [place], [place] [phone] Marcella Cameron MD 230 [place] [address] Paperwork/Forms Social History Tobacco Use Types Packs/Day Years Used Date Smoking Tobacco: Never Assessed Sex and Gender Information Value Date Recorded Sex Assigned at Male 07/27/2022 10:36 AM EDT Legal Sex Male 10:36 AM EDT Gender Identity Male 07/27/2022 10:36 AM EDT Sexual Orientation Straight 07/27/2022 10 :36 AM EDT documented as of this encounter Miscellaneous Notes * Telephone Encounter - Maria M Raman - 05/07/2023 4:03 PM EDT Please see message below and advise. * Telephone Encounter - Deborah Villarreal - 05/07/2023 3:28 PM EDT TC from [facility] stated pt need a Pa done for freestyle test strips. To contact [facility] at Pcp dr. Lara documented in this encounter Plan of Treatment Upcoming Encounters Date Type Department Care Team (Late st Contact Info) Description 06/05/2025 10:00 AM EDT Medication Management [address] [phone] Vaishali Nuñez PharmD [address] [place] [address] 07/31/2025 9:15 AM EST Office Visit [address] [address] Marcella Cameron MD [address] [place] [address] 135[address] documented as of this encounter Visit Diagnoses Not on filedocumented in this encounter Care Teams Biochemistry Specialist Relationship Specialty Start Date End Date Marcella Cameron MD [address] [place] [address] 439[address] PCP - General Family Medicine 07/19/19 Vaishali Nuñez, Jesse [address] [place] [address] 11987 Pharmacist Internal Medicine 04/02/24 documented as of this encounter
--- OUTSIDE RECORDS SUMMARY | 2025-05-29 09:38 | XMS_ITS | Encounter Summary ---
Author Organization [employer] Address 75 [facility] 7 [place] [address] Care Team Providers Care Poker In Name Role Phone Marcella Cameron MD Primary Care Provide r Vaishali Nuñez PharmD Unavailable Reason for Visit * Reason Onset Date Comments Med Refill 05/11/2024 Encounter Details Date Type Department Care Team (Late st Contact Info) Description 05/11/2024 Refill [facility] 230 [place], [place] [phone] Marcella Cameron MD 230 [place] [address] Type 2 diabetes mellitus with hyperglycemia, with long-term current use of insulin ([facility]) Social History Tobacco Use Types Packs/Day Years Used Date Smoking Tobacco: Never Smokeless Tobacco: Never Alcohol Use Standard Drinks/Week Comments Yes 3 (1 standard drink = 0.6 oz pur e alcohol) everday PHQ-2 Answer Date Recorded Patient Health Questionnaire-2 Score 0 06/04/2023 Housing Stability Answer Date Recorded What is your housing situation today? I have audra justine 07/16/[address] you li [...] Description 06/05/2025 10:00 AM EDT Medication Management [facility] [address] [place] [address] Vaishali Nuñez PharmD [address] [place] [address] 07/31/2025 9:15 AM EST Office Visit [facility] [address] [place] [address] Marcella Cameron MD [address] [place] [address] 0[address] documented as of this encounter Goals Goal Patient Goal Type Associated Problems Recent Progress Patient-Stated? Author Blood Pressure < 140/90 Blood Pressure 126/88(2024 9:15 AM EDT) No Vaishali Love PharmDomi Hemoglobin A1c < 7 Result Component 7(04/11/2025 10:56 AM EDT) No Vaishali Love PharmD documented as of this encounter Visit Diagnoses Diagnosis Type 2 diabetes mellitus with hyperglycemia, with long-term current use of insulin ([facility]) documented in this encounter Care Teams Poker In Relationship Specialty Start Date End Date Marcella Cameron MD 230 [place] [address] PCP - General Family Medicine 07/19/19 Vaishali Nuñez, EscobarD 230 [place] [address] Pharmacist Internal Medicine 04/02/24 documented as of this encounter
--- OUTSIDE RECORDS SUMMARY | 2025-05-29 09:38 | XMS_ITS | Encounter Summary ---
Author Organization [employer] Address 75 [facility] [place] [facility] 7 [place] [address] Care Team Providers Care Photographic Process Attendant Name Role Phone Marcella Cameron MD Primary Care Provide r Vaishali Nuñez PharmD Unavailable Reason for Visit * Reason Onset Date Comments Med Refill 03/06/2024 Encounter Details Date Type Department Care Team (Late st Contact Info) Description 03/06/2024 Refill [facility] 230 [place], [place] [phone] Marcella Cameron MD 230 [place], [place] [phone] Type 2 diabetes mellitus with hyperglycemia, with long-term current use of insulin ([facility]) Social History Tobacco Use Types Packs/Day [...] Description 06/05/2025 10:00 AM EDT Medication Management [facility] [address] [place] [address] Vaishali Nuñez PharmD [address] [place] [address] 07/31/2025 9:15 AM EST Office Visit [facility] [address] [place] [address] 76814 Marcella Cameron MD [address] [place] [address] documented as of this encounter Visit Diagnoses Diagnosis Type 2 diabetes mellitus with hyperglycemia, with long-term current use of insulin ([facility]) documented in this encounter Care Teams Photographic Process Attendant Relationship Specialty Start Date End Date Marcella Cameron MD [address] [place] [address]82 PCP - General Family Medicine 07/19/19 Vaishali Nuñez PharmD [address] [place] [address]79 Pharmacist Internal Medicine 04/02/24 documented as of this encounter
--- OUTSIDE RECORDS SUMMARY | 2025-05-29 09:38 | XMS_ITS | Encounter Summary ---
Author Organization [employer] Address 75 [facility] 7t [place] [address] Care Team Providers Care Security Systems Administrator Name Role Phone Marcella Cameron MD Primary Care Provide r Vaishali Nuñez PharmD Unavailable Reason for Visit * Reason Onset Date Comments Med Refill 07/29/2023 Encounter Details Date Type Department Care Team (Late st Contact Info) Description 07/29/2023 Refill [facility] 230 [place], [place] [phone] Silvana Centeno DO 230 [place], [place] [phone] Type 2 diabetes mellitus with hyperglycemia, with long-term current use of insulin ([facility]) Social History Tobacco Use Types Packs/Day [...] Description 06/05/2025 10:00 AM EDT Medication Management [facility] [address] [place] [address] Vaishali Nuñez PharmD [address] [place] [address] 07/31/2025 9:15 AM EST Office Visit [facility] [address] [place] [address] Marcella Cameron MD [address] [place] [address] documented as of this encounter Visit Diagnoses Diagnosis Type 2 diabetes mellitus with hyperglycemia, with long-term current use of insulin ([facility]) documented in this encounter Care Teams Security Systems Administrator Relationship Specialty Start Date End Date Marcella Cameron MD [address] [place] [address]10 PCP - General Family Medicine 07/19/19 Vaishali Nuñez, EscobarD [address] [place] [address]385 Pharmacist Internal Medicine 04/02/24 documented as of this encounter
--- OUTSIDE RECORDS SUMMARY | 2025-05-29 09:38 | XMS_ITS | Encounter Summary ---
Author Organization [employer] Address 75 [facility] 7 [place] [address] Care Team Providers Care Clothing Busheler Name Role Phone Marcella Cameron MD Primary Care Provide r Vaishali Nuñez PharmD Unavailable Reason for Visit * Reason Onset Date Comments Med Refill 11/08/2023 Encounter Details Date Type Department Care Team (Late st Contact Info) Description 11/08/2023 Refill [facility] 230 [place], [place] [phone] Marcella Cameron MD 230 [place] [address] Type 2 diabetes mellitus with hyperglycemia, with long-term current use of insulin ([facility]) Social History Tobacco Use Types Packs/Day Years [...] Description 06/05/2025 10:00 AM EDT Medication Management [facility] [address] [place] [address] Vaishali Nuñez PharmD [address] [place] [address] 07/31/2025 9:15 AM EST Office Visit [facility] [address] [place] [address] 29298 Marcella Cameron MD [address] [place] [address] [phone] documented as of this encounter Visit Diagnoses Diagnosis Type 2 diabetes mellitus with hyperglycemia, with long-term current use of insulin ([facility]) documented in this encounter Care Teams Clothing Busheler Relationship Specialty Start Date End Date Marcella Cameron MD [address] [place] [address] PCP - General Family Medicine 07/19/19 Vaishali Nuñez PharmD [address] [place] [address] Pharmacist Internal Medicine 04/02/24 documented as of this encounter
--- OUTSIDE RECORDS SUMMARY | 2025-05-29 09:38 | XMS_ITS | Encounter Summary ---
Author Organization [employer] Address 75 [facility] 7 [place] [address] Care Team Providers Care Enterprise Software Developer Name Role Phone Marcella Cameron MD Primary Care Provide r Vaishali Nuñez PharmD Unavailable Reason for Visit * Reason Onset Date Comments Med Refill 06/01/2024 Encounter Details Date Type Department Care Team (Late st Contact Info) Description 06/01/2024 Refill [facility]INE 230 [place], [place] [phone] Marcella Cameron MD 230 [place] [address] Hypertriglyceridemia, essential; Primary hypertension; Eczema, unspecified type; Type 2 diabetes mellitus with hyperglycemia, with long-term current use of insulin ([facility]) Social History Tobacco Use Types [...] Description 06/05/2025 10:00 AM EDT Medication Management [facility] [address] [place] [address] Vaishali Nuñez PharmD [address] [place] [address] 07/31/2025 9:15 AM EST Office Visit [facility] [address] [place] [address] 78182 Marcella Cameron MD [address] [place] [address] 12132 documented as of this encounter Goals Goal Patient Goal Type Associated Problems Recent Progress Patient-Stated? Author Blood Pressure < 140/90 Blood Pressure 126/88(2024 9:15 AM EDT) No Vaishali Love, PharmD Hemoglobin A1c < 7 Result Component 7(04/11/2025 10:56 AM EDT) No Vaishali Love PharmD documented as of this encounter Visit Diagnoses Diagnosis Hypertriglyceridemia, essential Pure hyperglyceridemia Primary hypertension Unspecified essential hypertension Eczema, unspecified type Type 2 diabetes mellitus with hyperglycemia, with long-term current use of insulin ([facility]) documented in this encounter Care Teams Enterprise Software Developer Relationship Specialty Start Date End Date Marcella Cameron MD 230 [place] [address] PCP - General Family Medicine 07/19/19 Vaishali Nuñez, EscobarD 230 [place] [address] Pharmacist Internal Medicine 04/02/24 documented as of this encounter
--- OUTSIDE RECORDS SUMMARY | 2025-05-29 09:38 | XMS_ITS | Encounter Summary ---
Author Organization [employer] Address 75 [facility] 7 [place] [address] Care Team Providers Care Blister Rust Eradicator Name Role Phone Marcella Cameron MD Primary Care Provide r Vaishali Nuñez PharmD Unavailable [phone] Reason for Visit * Reason Onset Date Comments Med Refill 03/17/2024 Encounter Details Date Type Department Care Team (Late st Contact Info) Description 03/17/2024 Refill [facility] MEDICINE 230 [place], [place] [phone] Marcella Cameron MD 230 [place], [place] [phone] Type 2 diabetes mellitus with hyperglycemia, with long-term current use of insulin ([facility]) Social History [...] Description 06/05/2025 10:00 AM EDT Medication Management [facility] [address] [place] [address] Vaishali Nuñez PharmD [address] [place] [address] 07/31/2025 9:15 AM EST Office Visit [facility] [address] [place] [address] Marcella Cameron MD [address] [place] [address] [phone] documented as of this encounter Visit Diagnoses Diagnosis Type 2 diabetes mellitus with hyperglycemia, with long-term current use of insulin ([facility]) documented in this encounter Care Teams Blister Rust Eradicator Relationship Specialty Start Date End Date Marcella Cameron MD [address] [place] [address] [phone] PCP - General Family Medicine 07/19/19 Vaishali Nuñez PharmD [address] [place] [address] 28774 Pharmacist Internal Medicine 04/02/24 documented as of this encounter
--- OUTSIDE RECORDS SUMMARY | 2025-05-29 09:38 | XMS_ITS | Encounter Summary ---
Author Organization [employer] Address 75 [facility] 7t [place] [address] Care Team Providers Care Can Vacuum Tester Name Role Phone Marcella Cameron MD Primary Care Provide r Vaishali Nuñez PharmD Unavailable Encounter Details Date Type Department Care Team (Late st Contact Info) Description 08/06/2023 Abstract [facility] MEDICINE 230 [place], [place] [phone] Marcella Cameron MD 230 [place], [place] [phone] Social History Tobacco Use Types Packs/Day Years [...] Description 06/05/2025 10:00 AM EDT Medication Management [facility] MEDICINE [address] [place] [phone] Vaishali Nuñez, PharmD [address] [place] [address]39 07/31/2025 9:15 AM EST Office Visit [address] [address] Marcella Cameron MD [address] [place] [address] [phone] documented as of this encounter Procedures Procedure Name Priority Date/Time Associated Diagnosis Comments FIT DNA/COLOGUARD CANCER SCREENING Routine 07/28/2023 documented in this encounter Results * FIT DNA/Cologuard Cancer Screening (07/28/2023) [facility] Signature Cologuard Cancer Screen Negative [employer] (CLIA #:[id number]) Stool us Marcella Sharma MD HEALTH MAINTENANCE Fi nal Result [employer] (CLIA #:[id number]) [place] [address], documented in this encounter Visit Diagnoses Not on filedocumented in this encounter Care Teams Can Vacuum Tester Relationship Specialty Start Date End Date Marcella Cameron MD [address] [place] [address]34 PCP - General Family Medicine 07/19/19 Vaishali Nuñez, EscobarD 230 [place] [address] Pharmacist Internal Medicine 04/02/24 documented as of this encounter
--- OUTSIDE RECORDS SUMMARY | 2025-05-29 09:38 | XMS_ITS | Encounter Summary ---
Author Organization [employer] Address 75 [facility] 7 [place] [address] Care Team Providers Care Entry Level Project Engineer Name Role Phone Marcella Cameron MD Primary Care Provide r Vaishali Nuñez PharmD Unavailable Reason for Visit * Reason Onset Date Comments Med Refill 06/16/2024 Encounter Details Date Type Department Care Team (Late st Contact Info) Description 06/16/[address] [facility] MEDICINE 230 [place], [place] [phone] Marcella Cameron MD 230 [place] [address] Type 2 diabetes mellitus with hyperglycemia, with long-term current use of insulin ([facility]) Social History Tobacco Use Types [...] Description 06/05/2025 10:00 AM EDT Medication Management [facility] MEDICINE [address] [place] [address] Vaishali Nuñez PharmD [address] [place] [address] 07/31/2025 9:15 AM EST Office Visit [facility]INE [address] [place] [address] Marcella Cameron MD [address] [place] [address] documented as of this encounter Goals Goal [...] hyperglycemia, with long-term current use of insulin ([facility]) documented in this encounter Care Teams Entry Level Project Engineer Relationship Specialty Start Date End Date Marcella Cameron MD 230 [place] [address] PCP - General Family Medicine 07/19/19 Vaishali Nuñez, EscobarD 230 [place] [address] Pharmacist Internal Medicine 04/02/24 documented as of this encounter
--- OUTSIDE RECORDS SUMMARY | 2025-05-29 09:39 | XMS_ITS | Clinical Summary ---
Author Organization [employer] Address [address] [facility] [address] [place] [address] Care Team Providers Care Manufacturing Director Name Role Phone Marcella Cameron MD Primary Care Provide r Vaishali Nuñez PharmD Unavailable Allergies Active Allergy Reactions Criticality Noted Date Comments Avocado High 09/03/2020 Medications enalapril (Vasotec) 20 MG tabletIndicatio ns:Primary hypertension TAKE 1 TABLET BY MOUTH EVERY MORNING 90 tablet 1 025 Active Alcohol Swabs (Alcohol Prep) 70 % padsIndications :Type 2 diabetes mellitus with other specified complication, unspecified whether long term care phlebotomist insulin use ([facility]) USE THREE TIMES DAILY DIRECTED 100 each 11 025 Active Continuous Glucose Sensor (FreeStyle Elle 3 Plus Sensor) miscIndications :Type 2 diabetes mellitus with other specified complication, unspecified whether senior living insulin use ([facility]) 1 each every 15 days. Apply 1 every 15 days as directed for CGM 2 each 025 Active atorvastatin (Lipitor) 40 MG tabletIndicatio ns:Hypertriglyc eridemia, essential TAKE 1 TABLET BY MOUTH EVERY EVENING 90 tablet 3 025 Active acetone, urine, test stripIndication s:Type 2 diabetes mellitus with other specified complication, unspecified whether senior living insulin use ([facility]) 1 strip if needed for high blood sugar. 100 each 11 025 Active Semaglutide, 2 MG/DOSE, (Ozempic, 2 MG/DOSE,) 8 MG/3ML solution pen-injectorInd ications:Type 2 diabetes mellitus with other specified complication, unspecified whether long term care phlebotomist insulin use ([facility]) Inject 0.75 mL (2 mg) under the skin every 7 (seven) days. 3 mL 3 025 Active insulin glargine (Lantus SoloStar) 100 UNIT/ML penIndications: Type 2 diabetes mellitus with other specified complication, unspecified whether long term care phlebotomist insulin use ([facility]) Inject subcutaneously 44 units once daily 15 mL 3 025 Active insulin lispro (HumaLOG KWIKPEN) 100 UNIT/ML injectionIndica tions:Type 2 diabetes mellitus with other specified complication, unspecified whether senior living insulin use ([facility]) Inject subcutaneously three times daily before meals: 10 units before breakfast, 12 units before lunch and 18 units before dinner. Do not use if skipping meal. 025 Active hydrOXYzine HCl (Atarax) 25 MG tabletIndicatio ns:Eczema, unspecified type TAKE 1 TABLET BY MOUTH THREE TIMES DAILY NEEDED 90 tablet 1 025 Active Aspirin Low Dose 81 MG EC tabletIndicatio ns:Type 2 diabetes mellitus with other specified complication, unspecified whether long term care phlebotomist insulin use ([facility]) TAKE 1 TABLET BY MOUTH EVERY EVENING 90 tablet 1 025 Active fenofibrate (Tricor) 145 MG tabletIndicatio ns:Hypertriglyc eridemia, essential TAKE 1 TABLET BY MOUTH EVERY EVENING 90 tablet 1 025 Active TRUEplus Lancets 33G miscIndications :Type 2 diabetes mellitus with hyperglycemia, with long-term current use of insulin ([facility]) USE THREE TIMES DAILY DIRECTED 100 each 11 025 Active triamcinolone (Kenalog) 0.1 % creamIndication s:Eczema, unspecified type APPLY TOPICALLY IN THE MORNING AND AT BEDTIME NEEDED FOR PAIN AND SWELLING 30 g 025 Active Embecta Pen Needle Ultrafine 31G X 5 MM miscIndications :Type 2 diabetes mellitus with hyperglycemia, with long-term current use of insulin ([facility]) USE DIRECTED FOUR TIMES DAILY 100 each 3 025 Active glucose blood (FreeStyle Precision Jeffry Test) test stripIndication s:Type 2 diabetes mellitus with other specified complication, unspecified whether senior living insulin use ([facility]) Test blood sugar three times daily 100 each 11 024 2024 TRUEplus Lancets 33G miscIndications :Type 2 diabetes mellitus with hyperglycemia, with long-term current use of insulin ([facility]) USE 1 THREE TIMES DAILY DIRECTED 100 each 3 024 2024 Discontinued aspirin 81 MG EC tabletIndicatio ns:Type 2 diabetes mellitus with other specified complication, unspecified whether senior living insulin use ([facility]) TAKE 1 TABLET BY MOUTH EVERY DAY 90 tablet 1 025 2024 Discontinued fenofibrate (Tricor) 145 MG tabletIndicatio ns:Hypertriglyc eridemia, essential TAKE 1 TABLET BY MOUTH EVERY DAY 90 tablet 1 025 2024 Discontinued insulin pen needle (Sure Comfort Pen [place]) 31G x 5 mm miscIndications :Type 2 diabetes mellitus with hyperglycemia, with long-term current use of insulin ([facility]) USE WITH INSULIN ADMINISTRATION 4 TIMES DAILY 100 each 3 025 2024 Discontinued hydrOXYzine HCl (Atarax) 25 MG tabletIndicatio ns:Eczema, unspecified type TAKE 1 TABLET BY MOUTH THREE TIMES DAILY NEEDED 90 tablet 1 025 2024 Discontinued triamcinolone (Kenalog) 0.1 % creamIndication s:Eczema, unspecified type APPLY TOPICALLY IN THE MORNING AND AT BEDTIME NEEDED FOR PAIN AND SWELLING 30 g 025 2024 Discontinued(R eorder (will not trigger notification to Pharmacy)) Active Problems Problem Noted Date Diagnosed Date Eczema 07/14/2024 Balanitis 07/14/2024 Assessment & Plan (07/14/2024 3:22 PM EDT): Counseling done Clotrimazole prescribed Colon cancer screening 07/08/2023 Obesity 06/02/2023 Hypertensive disorder 06/02/2023 Type 2 diabetes mellitus wit h hyperglycemia, with long-term current use of insulin 05/04/2021 Assessment & Plan (04/24/2025 12:55 PM EDT): Diabetes is: almost at goal - Lab Results Component Value Date HGBA1C 7.0 (A) 04/11/2025 HGBA1C 10.5 (A) 01/08/2025 HGBA1C 7.9 (A) 09/29/2024 - Lab Results Component Value Date MICROALBUR 7.0 04/05/2024 CREATININE 0.84 12/15/2024 -Changes: None - Diabetic eye exam: Up-to-date - Diabetic foot exam: Pending - Continue lifestyle modifications - Continue current medications - Follow up: 3 months Assessment & Plan (01/19/2025 12:24 PM EDT): Diabetes is: not controlled - Lab Results Component Value Date HGBA1C 10.5 (A) 01/08/2025 HGBA1C 7.9 (A) 09/29/2024 HGBA1C 7.6 (A) 07/14/2024 - Lab Results Component Value Date MICROALBUR 7.0 04/05/2024 CREATININE 0.84 12/15/2024 -Changes: I went up on his Lantus to 24 units I instructed to inject himself at bedtime instead of at 4:00 I also went up on his short acting insulin to 6 units with breakfast and 8 units with lunch and dinner follow-up with pharmacy [facility] - Diabetic eye exam: Referral done - Diabetic foot exam: Up-to-date - Continue lifestyle modifications - Continue current medications - Follow up: 3 months Assessment & Plan (01/08/2025 4:42 PM EDT): Uncontrolled, follow-up with [facility] and PCP this week Increase Lantus to 20 units and follow-up with PCP on 01/19 Humalog and Trulicity adjusted at [facility] Patient will have lunch now and check fingerstick prior to dinnertime and apply Humalog as prescribed Assessment & Plan (10/09/2024 12:00 PM EST): Diabetes is: almost at goal - Lab Results Component Value Date HGBA1C 7.9 (A) 09/29/2024 HGBA1C 7.6 (A) 07/14/2024 HGBA1C 9.6 (A) 03/31/2024 - Lab Results Component Value Date MICROALBUR 7.0 04/05/2024 CREATININE 0.92 04/05/2024 -Changes: c/w same medication regimen - Diabetic eye exam:referral today - Diabetic foot exam:pending - Continue lifestyle modifications - Follow up: 3 months Assessment & Plan (07/14/2024 3:20 PM EDT): Diabetes is: almost at goal - Lab Results Component Value Date HGBA1C 7.6 (A) 07/14/2024 HGBA1C 9.6 (A) 03/31/2024 HGBA1C 12.3 (A) 06/04/2023 - Lab Results Component Value Date MICROALBUR 7.0 04/05/2024 CREATININE 0.92 04/05/2024 -Changes: none - Diabetic eye exam:pending - Diabetic foot exam:pending - Continue lifestyle modifications - Continue current medications - Follow up: 3 months Assessment & Plan (07/08/2023 11:24 AM EDT): - Lab Results Component Value Date HGBA1C 12.3 (A) 06/04/2023 - Lab Results Component Value Date MICROALBUR 64.0 06/07/2023 CREATININE 0.84 06/07/2023 - Diabetic eye exam:referral today - Diabetic foot exam: referral today - Continue lifestyle modifications - Continue current medications, I added today lantus 12U daily, I prescribed again all his supplies Assessment & Plan (06/04/2023 1:01 PM EDT): Uncontrolled. Restart Trulicity, increase to 3mg/w as Im dc'ing Metformin. Continue on farxiga Counseled re more frequent low calorie/carb meals. Check fgstk 2x daily Encouraged physical activity as tolerated. FU in 1-2 months w PCP. Refer to ophthalmology Essential hypertension 05/04/2021 Assessment & Plan (04/24/2025 12:54 PM EDT): Advise: - Aerobic exercise to reduce BP. Initial goal of 30 min walk 3-5x/week. Increase as tolerated. - low-sodium diet (goal: <2g/day) and heart healthy diet such as DASH to reduce BP and prevent ASCVD. - Home BP monitoring 1-2 x day with goal of <140/90. - Seek immediate medical attention for chest pain, palpitations, SOB, syncope, or sudden changes in mental status. - Do not change or discontinue current prescriptions without first consulting health care provider Assessment & Plan (01/19/2025 12:23 PM EDT): I advised: - Aerobic exercise to reduce BP. Initial goal of 30 min walk 3-5x/week. Increase as tolerated. - low-sodium diet (goal: <2g/day) and heart healthy diet such as DASH to reduce BP and prevent ASCVD. - Home BP monitoring 1-2 x day with goal of <140/90. - Seek immediate medical attention for chest pain, palpitations, SOB, syncope, or sudden changes in mental status. - Do not change or discontinue current prescriptions without first consulting health care provider Assessment & Plan (10/09/2024 11:59 AM EST): I advised: - Aerobic exercise to reduce BP. Initial goal of 30 min walk 3-5x/week. Increase as tolerated. - low-sodium diet (goal: <2g/day) and heart healthy diet such as DASH to reduce BP and prevent ASCVD. - Home BP monitoring 1-2 x day with goal of <140/90. - Seek immediate medical attention for chest pain, palpitations, SOB, syncope, or sudden changes in mental status. - Do not change or discontinue current prescriptions without first consulting health care provider Assessment & Plan (07/14/2024 3:23 PM EDT): Maintenance: BMP: up to date Lipid Panel: up to date ASCVD Risk: 13.8% on atorvastatin 40mg daily - Aerobic exercise to reduce BP. Initial goal of 30 min walk 3-5x/week. Increase as tolerated. - low-sodium diet (goal: <2g/day) and heart healthy diet such as DASH to reduce BP and prevent ASCVD. - Home BP monitoring 1-2 x day with goal of <140/90. - Seek immediate medical attention for chest pain, palpitations, SOB, syncope, or sudden changes in mental status. - Do not change or discontinue current prescriptions without first consulting health care provider Assessment & Plan (07/08/2023 11:23 AM EDT): - Aerobic exercise to reduce BP. Initial goal of 30 min walk 3-5x/week. Increase as tolerated. - low-sodium diet (goal: <2g/day) and heart healthy diet such as DASH to reduce BP and prevent ASCVD. - Home BP monitoring 1-2 x day with goal of <140/90. - Seek immediate medical attention for chest pain, palpitations, SOB, syncope, or sudden changes in mental status. - Do not change or discontinue current prescriptions without first consulting health care provider Assessment & Plan (06/04/2023 1:00 PM EDT): Uncontrolled. Increase Enalapril to 20mg/d and fu w PCP Counseled re low salt diet/increase moderate physical activity. Check home BP BIW and prn CP/CASE/GOODE Non smoking patient. Encounters Date Type Department Care Team Description 05/21/2025 Refill [facility] [address] [place] [address] Vaishali Nuñez, Jesse Type 2 diabetes mellitus with hyperglycemia, with long-term current use of insulin ([facility]) 05/15/2025 Refill [facility] [address] [place] [address] Marcella Cameron MD Eczema, unspecified type 05/07/2025 Refill [facility] [address] [place] [address] Marcella Cameron MD Hypertriglyceridemia, essential; Type 2 diabetes mellitus with other specified complication, unspecified whether senior living insulin use ([facility]) 05/05/2025 Refill [facility] [address] [place] [address] Marcella Cameron MD Type 2 diabetes mellitus with hyperglycemia, with long-term current use of insulin ([facility]) 05/03/2025 Refill [facility] [address] [place] [address] Marcella Cameron MD Type 2 diabetes mellitus with other specified complication, unspecified whether long term care phlebotomist insulin use ([facility]); Hypertriglyceridemia, essential 05/02/2025 Refill [facility] [address] [place] [address] Tonja Bee MD Eczema, unspecified type 04/24/2025 9:15 AM EDT Office Visit [facility] [address] [place] [address] Marcella Cameron MD Type 2 diabetes mellitus with hyperglycemia, with long-term current use of insulin ([facility]) (Primary Dx); Essential hypertension 04/24/2025 Travel 04/23/2025 Telephone [facility] [address] [place] [address] Marcella Cameron MD Chart Prep 04/11/2025 Travel 04/10/2025 Refill [facility] [address] [place] [address] Tonja Bee MD Eczema, unspecified type 04/02/2025 Telephone [facility] [address] [place] [address] Vaishali Nuñez, PharmD 03/16/2025 10:00 AM EDT Telemedicine [facility] [address] [place] [address] Vaishali Nuñez, PharmD Type 2 diabetes mellitus with other specified complication, unspecified whether long term care phlebotomist insulin use ([facility]) 03/12/2025 Telephone [facility] [address] [place] [address] Marcella Cameron MD 03/05/2025 Refill [facility] [address] [place] [address] Marcella Cameron MD Eczema, unspecified type; Type 2 diabetes mellitus with other specified complication, unspecified whether senior living insulin use ([facility]) 03/04/2025 Refill [facility] [address] [place] [address] Marcella Cameron MD Eczema, unspecified type from Last 3 Months Immunizations Immunization Administration Dates Next Due Hep B, adult 06/13/2024,10/17/2019,09/13/2019 Influenza injectable quadriv alent IIV4 with preservative 09/13/2019 Influenza injectable quadriv alent preservative free 08/01/2021 Influenza, seasonal, injecta ble, preservative free 07/14/2024 Pfizer Covid-19 Vaccine 12+ 08/15/2024 Pneumococcal Conjugate PCV 20 07/14/2024 Tdap 09/30/2020 Social History Tobacco Use Types Packs/Day Years Used Date Smoking Tobacco: Never Passive Smoke Exposure: Never Smokeless Tobacco: Never Tobacco Cessation:Counseling Given: Not Answered Alcohol Use Standard Drinks/Week Comments Yes 3 [...] housing situation today? I have audra fletcher 09/29/[address] you li ve. Do you have problems with any of the following? None of the above 09/29/2024 Food Insecurity Answer Date Recorded Within the past 12 months, y ou worried that your food would run out before you got money to buy more: Never True 09/29/2024 Within the past 12 months,th e food you bought just didn't last and you didn't have enough money to get more: Never True 11/2024 Transportation Answer Date Recorded In the past 12 months, has l ack of transportation kept you from medical appts, meetings, work or from getting things needed for daily living? No 09/29/2024 Utilities Answer Date Recorded In the past 12 months, has t he electric, gas, oil or water company threatened to shut off services in your home? No 09/29/2024 Depression Answer Date Recorded Patient Health Questionnaire-2 Score 0 07/14/2024 Internet Access Answer Date Recorded Internet Access Q1 Yes 09/29/2024 Internet Access Q2 Not on file 09/29/2024 Sex and Gender Information Value Date Recorded Sex Assigned at Male 07/27/2022 10:36 AM EDT Legal Sex Male 10:36 AM EDT Gender Identity Male 07/27/2022 10:36 AM EDT Sexual Orientation Straight 07/27/2022 10 :36 AM EDT Last Filed Vital Signs Vital Sign Reading Time Taken Comments Blood Pressure 126/88 04/24/2025 9:15 AM EDT Pulse 88 04/24/2025 9:15 AM EDT Temperature 36.1 C (97 F) 04/24/2025 9:15 AM EDT Respiratory Rate 23 04/24/2025 9:15 AM EDT Oxygen Saturation 99% 04/24/2025 9:15 AM EDT Inhaled Oxygen Concentration - - Weight 99.2 kg (218 lb 12.8 oz) 04/24/2025 9:15 AM EDT Height 190.5 cm (6' 3 ) 04/24/2025 9:15 AM EDT Body Mass Index 27.35 04/24/2025 9:15 AM EDT Plan of Treatment Upcoming Encounters Date Type Department Care Team (Late st Contact Info) Description 06/05/2025 10:00 AM EDT Medication Management [facility] [address] [place] [phone] Vaishali Nuñez, PharmD [address] [place] [phone] 07/31/2025 9:15 AM EST Office Visit [facility] [address] [place] [phone] Marcella Cameron MD [address] [place] [phone] Health Maintenance Due Date Last Done Comments CT Colonography 1968 Colonoscopy 1968 FIT 1968 FOBT 1968 HIV Screening 1968 Sigmoidoscopy 1968 Diabetes: Foot Exam 1978 Eye Exam 1978 Hepatitis C Screening 1986 Zoster Vaccines (1 of 2) 2018 Diabetes: Urine Protein Screening 04/05/2025 04/05/2024, 06/07/2023 Influenza Vaccine (#1) 2025 , 08/01/2021, 09/13/2019 Diabetes: Hemoglobin A1C 07/12/2025 025, 01/08/2025, 09/29/2024, Additional history exists Alcohol/Substance Use Screening 07/14/2025 07/14/2024 Depression Screening 07/14/2025 07/14/2024, 07/14/20 24 SDOH Screening 09/29/2025 09/29/2024 Lipid Panel 10/09/2025 10/09/2024, 03/27, 06/07/2023, Additional history exists Tobacco Screening 01/23/2026 01/23/2025 Disability Screening 04/24/2026 04/24/2025 Colorectal Cancer Screening 07/28/2026 FIT DNA/Cologuard 07/28/2026 07/28/2023, 07/28/2023 DTaP/Tdap/Td Vaccines (2 - Td or Tdap) 09/30/2030 09/30/2020 RSV Patients and Patients Aged 60 years or older (1 - 1-dose 75+ series) 2043 Hepatitis B Vaccines Completed 06/13/2024, 10/17/2019, 09/13/2019 Pneumococcal Vaccine: 50+ Years Completed 07/14/2024 COVID-19 Vaccine Completed 08/15/2024, , 01/06/2021, Additional history exists HIB Vaccines Aged Out No longer eligi ble based on patient's age to complete this topic HPV Vaccines Aged Out No longer eligi ble based on patient's age to complete this topic Hepatitis A Vaccines Aged Out No long er eligible based on patient's age to complete this topic IPV Vaccines Aged Out No longer eligi ble based on patient's age to complete this topic Meningococcal B Vaccine Aged Out No l onger eligible based on patient's age to complete this topic Meningococcal Vaccine Aged Out No la emilee eligible based on patient's age to complete this topic RSV under 20 months Aged Out No longe r eligible based on patient's age to complete this topic Rotavirus Vaccines Aged Out No longer eligible based on patient's age to complete this topic Goals Goal Patient Goal Type Associated Problems Recent Progress Patient-Stated? Author Blood Pressure < 140/90 Blood Pressure 126/88(2024 9:15 AM EDT) No Vaishali Love PharmD Hemoglobin A1c < 7 Result Component 7(04/11/2025 10:56 AM EDT) No Vaishali Love PharmD Procedures Procedure Name Priority Date/Time Associated Diagnosis Comments POCT GLUCOSE Routine 04/24/2025 9:17 AM EDT Type 2 diabetes mellitus with hyperglycemia, with long-term current use of insulin ([facility]) POCT GLYCATED HEMOGLOBIN, TOTAL Routine 04/11/2025 10:56 AM EDT Type 2 diabetes mellitus with hyperglycemia, unspecified whether senior living insulin use ([facility]) LIPID PANEL, STANDARD Routine 10/09/2024 8:45 AM EST Type 2 diabetes mellitus with other specified complication, unspecified whether long term care phlebotomist insulin use ([facility]) ALBUMIN, RANDOM URINE W/CREATININE Routine 04/05/2024 8:26 AM EDT LAB COLOGUARD COLON CANCER SCREEN Routine 07/28/2023 9:51 PM EDT Colon cancer screening from Last 3 Months or Most Recently Relevant to Health Maintenance Results * POCT Glucose (04/24/2025 9:17 AM EDT) Glucose Blood, POC 126 60 - 200 mg/dL QC Media Lot # [id number] Lot# Expiration Date Blood Capillary blood specimen / Unknown 04/24/2025 9:17 AM EDT Marcella Sharma MD POINT OF CARE TEST EN TER/EDIT ORDERABLES Final Result * (ABNORMAL) POCT A1C (04/11/2025 10:56 AM EDT) Hemoglobin A1C 7.0(A) 4.0 - 5.7 % QC Media Lot # [id number] Lot# Expiration Date [id number] Blood 04/11/2025 10:5 6 AM EDT Marcella Sharma MD POINT OF CARE TEST EN TER/EDIT ORDERABLES Final Result * (ABNORMAL) Lipid Panel, Standard (10/09/2024 8:45 AM EST) Triglycerides 116 <150 mg/dL [facility] Comment:Desirable Triglyceri de: less than 150 mg/dLBorderline High Triglyceride 150-199 mg/dLHigh Triglyceride: 200-499 mg/dLVery High Triglyceride: greater than or equal to 5OO mg/dL Cholesterol 124 <200 mg/dL [facility] Comment:Desirable Cholestero l: less than 200 mg/dLBorderline High Cholesterol: 200-239 mg/dLHigh Cholesterol: greater than 239 mg/dL LDL Cholesterol Calculated 64 <100 mg/dL [facility] Comment:Desirable LDL: less than 100 mg/dLNear Optimal/Above Optimal LDL: 110- 129 mg/dLBorderline High LDL: 130-159 mg/dLHigh LDL: 160-189 mg/dLVery High LDL: greater than or equal to 190 mg/dL HDL Cholesterol 37(L) >40 mg/dL [facility] Comment:Desirable HDL: great er than 40 mg/dL Note: This HDL assay may give artificially low results in patients with liver disease. 10/09/2024 8:45 AM EST 10/09/2024 11:07 AM EST us Marcella Sharma MD LAB BLOOD ORDERABLES Final Result [facility] [address] [place] [phone] * Albumin, Random Urine W/Creatinine (04/05/2024 8:26 AM EDT) Creatinine, Urine 43.53 mg/dL [facility] Microalbumin Urine 7.0 mg/L [facility] Microalbum Creatinine Ratio Ur 16.0 <30 ug/mg cr [facility] Comment:Albumin/Creatinine R atio Reference Ranges: Normal: < 30 ug/mg creatinine Microalbuminuria: 30 - 300 ug/mg creatinineClinical Albuminuria: > 300 ug/mg creatinine 04/05/2024 8:26 AM EDT 04/05/2024 10:48 AM EDT Marcella Sharma MD LAB URINE ORDERABLES Final Result [facility] [address] [place] [address] [phone] * Cologuard?? colon cancer screening (07/28/2023 9:51 PM EDT) Cologuard Result Negative Negative 08/06/20 4:55 AM [employer] (CLIA #:[id number]) Comment: NEGATIVE TEST RESULT. A negative Cologuard result indicates a low likelihood that a colorectal cancer (CRC) or advanced adenoma (adenomatous polyps with more advanced pre-malignant features) is present. The chance that a person with a negative Cologuard test has a colorectal cancer is less than 1 in 1500 (negative predictive value >99.9%) or has an advanced adenoma is less than 5.3% (negative predictive value 94.7%). These data are based on a prospective cross-sectional study of 10,000 individuals at average risk for colorectal cancer who were screened with both Cologuard and colonoscopy. (Autumn Campbell al, N Engl J Med 2014;370(14):2699-3581) The normal value (reference range) for this assay is negative. COLOGUARD RE-SCREENING RECOMMENDATION: Periodic colorectal cancer screening is an important part of preventive healthcare for asymptomatic individuals at average risk for colorectal cancer. Following a negative Cologuard result, the [place] and [place].S. Multi-Society Task Force screening guidelines recommend a Cologuard re-screening interval of 3 years. References: [place] Guideline for Colorectal Cancer Screening: https://www.cancer.org/cancer/ptjfp-wptzac-vgavoa/wmufmidqe-xfkshtjen-eudgqby/ac s-rec ommendations.html.; Tae DK, William CR, Annmarie MccormickK, Colorectal Cancer Screening: Recommendations for Physicians and Patients from the U.S. Multi-Society Task Force on Colorectal Cancer Screening , Am J Gastroenterology 2017; 112:5710-4928. TEST DESCRIPTION: Composite algorithmic analysis of stool DNA-biomarkers with hemoglobin immunoassay. Quantitative values of individual biomarkers are not reportable and are not associated with individual biomarker result reference ranges. Cologuard is intended for colorectal cancer screening of adults of either sex, 45 years or older, who are at average-risk for colorectal cancer (CRC). Cologuard has been approved for use by the [place] FDA. The performance of Cologuard was established in a cross sectional study of average-risk adults aged 50-84. Cologuard performance in patients ages 45 to 49 years was estimated by sub-group analysis of near-age groups. Colonoscopies performed for a positive result may find as the most clinically significant lesion: colorectal cancer [4.0%], advanced adenoma (including sessile serrated polyps greater than or equal to 1cm diameter) [20%] or non- advanced adenoma [31%]; or no colorectal neoplasia [45%]. These estimates are derived from a prospective cross-sectional screening study of 10,000 individuals at average risk for colorectal cancer who were screened with both Cologuard and colonoscopy. (Autumn Rowe et al, N Engl J Med 2014;370(14):1067-7104.) Cologuard may produce a false negative or false positive result (no colorectal cancer or precancerous polyp present at colonoscopy follow up). A negative Cologuard test result does not guarantee the absence of CRC or advanced adenoma (pre-cancer). The current Cologuard screening interval is every 3 years. ([place] [employer] and [place].S. Multi-Society Task Force). Cologuard performance data in a 10,000 patient pivotal study using colonoscopy as the reference method can be accessed at the following location: www.iRezQ.Finco/results. Additional description of the Cologuard test process, warnings and precautions can be found at www.[email or web address].com. Stool specimen (specimen) 07/28/2023 9:51 PM EDT 07/30/2023 6:19 PM EDT Marcella Sharma MD LAB MOLECULAR DIAGNOS TICS ORDERABLES Final Result [employer] (CLIA #:[id number]) [place] [address], from Last 3 Months or Most Recently Relevant to Health Maintenance Insurance [employer] Care Teams Manufacturing Director Relationship Specialty Start Date End Date Marcella Cameron MD [address] [place] [id number] PCP - General Family Medicine 07/19/19 Vaishali Nuñez, [address] [place], [place] [phone] Pharmacist Internal Medicine 04/02/24
[2025-05-29 11:37] LABS: Hemoglobin A1C 164.5492 umol/L; Total Hemoglobin (HGBA1C) 3403.9494 umol/L
[2025-05-29 11:59] LABS: Alanine Aminotransferase 22 U/L (0-40); Albumin Level 4.8 g/dL (3.5-5.0); Alkaline Phosphatase 45 U/L (39-117); Anion Gap 13 (12-20); Aspartate Amino Transferase 24 U/L (5-37); Blood Urea Nitrogen 20 mg/dL (9-16); Calcium 9.4 mg/dL (8.4-10.2); Carbon Dioxide 24 mmol/L (22-29); Chloride 104 mmol/L (96-108); Cholesterol 129 mg/dL (<200); Estimated Glomerular Filt Rate > 60; HDL Cholesterol 45 mg/dL (>40); Potassium 4.1 mmol/L (3.3-5.1); Sodium 137 mmol/L (135-145); Total Protein 7.8 g/dL (6.5-8.0); Triglycerides 70 mg/dL (<150)
[2025-05-29 12:21] LABS: Microalbum/Creatinine Ratio Ur 7.1 ug/mg cr (<30)
== END 2025-05-29 08:52 | disposition home or self-care (01) ==
LOC: HO.HHCL 08:51
PROVIDERS: PCP Internal Medicine; Visit Provider Internal Medicine
DX: E11.65 Type 2 diabetes mellitus with hyperglycemia (principal); E11.69 Type 2 diabetes mellitus with other specified complication; Z79.4 Long term (current) use of insulin
CPT/HCPCS: 36415; 80053; 80061; 82043; 82570; 83036